=== PATIENT | male | born 1970 | race Caucasian/White ===

== ENCOUNTER 2016-10-23 07:00 | Day surgery (SDC) | payer BC ==
[~2016-10-23] VITALS: Ht 185.4 cm; Wt 103.5 kg
[~2016-10-23 07:00] MED LIST: BACTRIM DS 8001 TAB PO; CIPRO 500MG TA500 MG PO; FLONASE NASAL S16 GM NS; IBUPROFEN2; NASONEX SPRAY
[2016-10-23 07:14] VITALS: BP 110/73; PULSE 55; TEMP 98.2
[2016-10-23] MEDS ORDERED: LEXAPRO 10MG10 MG PO (07:45)
[2016-10-23] MEDS ORDERED: GLUCOSAMIN 500 PO (07:45)
[2016-10-23] MEDS ORDERED: MAGNESIUM CHELA27 MG PO (07:46)
[2016-10-23] MEDS ORDERED: MICRO-K EXTENCA8 MEQ PO (07:46)
[2016-10-23] MEDS ORDERED: PHARMASSURE ZIN50 MG PO (07:46)
[2016-10-23] MEDS ORDERED: ADVIL200 MG PO (07:47)
[2016-10-23 08:30] VITALS: BP 125/81; PULSE 63; TEMP 98.3
[2016-10-23 08:45] VITALS: BP 122/75; PULSE 65
[2016-10-23 09:00] VITALS: BP 133/94; PULSE 60
== END 2016-10-23 09:20 | disposition home or self-care (01) ==
LOC: SDCO 07:00
DX: Z12.11 Encounter for screening for malignant neoplasm of colon (principal); Z80.0 Family history of malignant neoplasm of digestive organs; D12.5 Benign neoplasm of sigmoid colon; K63.5 Polyp of colon; K64.1 Second degree hemorrhoids; R19.5 Other fecal abnormalities
CPT/HCPCS: OP; J2250; J3010; J7030